=== PATIENT | female | born 1960 | race Caucasian/White ===

== ENCOUNTER → 2023-08-05 14:51 | Outpatient (CLI) | payer OTHER, SELFPAY ==
[2023-08-05 18:47] LABS: Appearance Urine UA CLEAR; Bilirubin Urine UA NEGATIVE (NEGATIVE); Color Urine UA YELLOW; Glucose Urine UA NEGATIVE (Negative); Ketones Urine UA NEGATIVE (NEGATIVE); Leukocyte Esterase Urine UA TRACE (NEGATIVE); Nitrite Urine UA NEGATIVE (Negative); Occult Blood Urine UA NEGATIVE (Negative); Protein Urine UA NEGATIVE (Negative); Urobilinogen Urine UA 0.2 E.U./dL (0.2)
[2023-08-05 19:12] LABS: Bacteria Urine Few (2-10); RBC Urine None Seen (0-5/HPF); Urine Volume 10mL (spun); WBC Urine 10-30/HPF (0-5/HPF)
[2023-08-05 19:13] LABS: Culture Indicated Urine Specimen Cultured; Squamous Epithelial Cell Urine 1-5 /HPF (0-5/HPF)
[2023-08-09 13:46] LABS: Interpretation Negative (Negative)
== END ==
PROVIDERS: PCP Internal Medicine Geriatric Medicine; Referring Provider Internal Medicine Geriatric Medicine; Visit Provider Internal Medicine Geriatric Medicine
DX: R30.0 Dysuria (principal); K29.70 Gastritis, unspecified, without bleeding
CPT/HCPCS: 81001; 83013; 87077; 87086; 87186

== ENCOUNTER → 2024-04-17 12:39 | Outpatient (CLI) | payer OTHER, SELFPAY ==
[2024-04-17 14:02] LABS: Alanine Aminotransferase 27 IU/L (<35)
[2024-04-17 15:46] LABS: Hepatitis B Surface Antigen NEGATIVE s/c (NEGATIVE)
[2024-04-17 16:06] LABS: HIV 1 & 2 Ab/Ag 4th Gen Combo NEGATIVE (NEGATIVE); Hep C Virus Ab w/Reflex Quant NEGATIVE s/c (NEGATIVE)
[2024-04-18 05:40] LABS: Hepatitis B Surf Ab Qualitativ Reactive (.)
== END ==
LOC: LAB 12:43
PROVIDERS: Family Provider Internal Medicine Geriatric Medicine; PCP Internal Medicine Geriatric Medicine; Referring Provider Internal Medicine; Visit Provider Internal Medicine
DX: Z77.21 Contact with and (suspected) exposure to potentially hazardous body fluids (principal)
CPT/HCPCS: 36415; 84460; 86706; 86803; 87340; 87389

== ENCOUNTER → 2024-05-08 08:01 | Outpatient (CLI) | payer OTHER, SELFPAY ==
[2024-05-08 08:39] LABS: Add Manual Diff / Slide Review NO; Basophils Absolute Auto 0 /uL (0-100); Basophils Percent Auto 0.7 % (0-2); Eosinophils Absolute Auto 100 /uL (0-450); Eosinophils Percent Auto 2.9 % (2-4); Hematocrit 40.8 % (36-46); Hemoglobin 13.5 g/dL (12.0-16.0); Lymphocytes Absolute Auto 1200 /uL (1100-4500); Lymphocytes Percent Auto 27.1 % (25-40); Mean Corpuscular HGB Conc 33.1 % (30-36); Mean Corpuscular Hemoglobin 31.5 PG (26-34); Mean Corpuscular Volume 95.2 fL (80-100); Monocytes Absolute Auto 500 /uL (0-900); Monocytes Percent Auto 11.4 % (3-14); Neutrophils Absolute Auto 2500 /uL (1500-7000); Neutrophils Percent Auto 57.9 % (50-75); Platelet Count 165 X10^3/uL (150-400); Red Blood Cell Count 4.29 X10^6/uL (4.0-5.2); Red Cell Distribution Width 13.2 % (11.6-14.8); White Blood Cell Count 4.3 X10^3/uL (4.5-11.0)
[2024-05-08 09:03] LABS: Alanine Aminotransferase 23 IU/L (<35); Albumin 4.1 g/dL (3.5-5.0); Albumin Globulin Ratio 2.1 (1.0-2.8); Alkaline Phosphatase 50 U/L (38-126); Aspartate Aminotransferase 29 IU/L (14-36); BUN Creatinine Ratio 26.7 (6-22); Bilirubin Total 0.5 mg/dL (0.2-1.3); Blood Urea Nitrogen 23 mg/dL (7-17); Calcium 8.9 mg/dL (8.4-10.2); Carbon Dioxide 30 mmol/L (22-32); Chloride 103 mmol/L (98-107); Cholesterol 160 mg/dL (140-199); Estimated Glomerular Filt Rate > 60 mL/min (>60); Glucose 91 mg/dL (80-110); HDL Cholesterol 70 mg/dL (40-60); HEMOLYSIS < 15 (0-50); LDL Cholesterol Calculated 77 mg/dL (<100); Potassium 4.5 mmol/L (3.4-5.1); Sodium 136 mmol/L (137-145); Total Protein 6.1 g/dL (6.3-8.2); Triglycerides 66 mg/dL (35-150)
[2024-05-08 09:16] LABS: T4 Total Thyroxine 7.11 ug/dL (5.5-11.0)
[2024-05-08 09:29] LABS: Thyroid Stimulating Hormone 0.357 uIU/mL (0.47-4.68)
== END ==
PROVIDERS: Family Provider Internal Medicine Geriatric Medicine; PCP Internal Medicine Geriatric Medicine; Referring Provider Internal Medicine Geriatric Medicine; Visit Provider Internal Medicine Geriatric Medicine
DX: Z00.00 Encounter for general adult medical examination without abnormal findings (principal)
CPT/HCPCS: 36415; 80053; 80061; 83036; 84436; 84443; 85025

== ENCOUNTER 2024-05-17 09:00 | Outpatient (RCR) | payer OTHER, SELFPAY ==
--- NOTE | 2024-02-24 16:16 | PT.OIE ---
Current Diagnoses Malignant neoplasm of cervix uteri, unspecified (02/24/24) Pelvic muscle wasting (02/24/24) Nocturia (02/24/24) Urgency of urination (02/24/24) Other specified postprocedural states (02/24/24) Visit Care Team Role Provider Type Kary oJhn MD Family Provider Non-Staff Primary Care Provider Specialty: Medical Address: [address] [place] [address], [phone] Email: Dara Saleem PA-C Attending Provider Non-Staff Referring Provider Specialty: Medical Address: [address] [place], [address] Email: Physical Therapy Initial Evaluation PT-OP-A Visit Information Start: 02/24/24 08:58 Freq: Status: Active Protocol: Document 02/24/24 09:48 [facility] (Rec: 02/24/24 10:42 [facility] [id number]) Out-Patient Physical Therapy Visit Information Visit Information Visit Type Initial Evaluation Visit Start Time 09:45 Visit Stop Time 10:30 Visit Number 1 Evaluation Information Evaluation Date 02/24/24 PT-OP-B Current Condition Start: 02/24/24 08:58 Freq: Status: Active Protocol: Document 02/24/24 09:45 [facility] (Rec: 02/24/24 10:42 [facility] [id number]) Current Condition History of Current Condition Onset Date 10/04/23 Current Complaints pelvic floor weakness and core weakness s/o hysterectomy History of Current Condition Doris is a 63 year old female who presents to PT with goals of strenghtening her pelvic floor s/p laprascopic hysterectomy due to cervical cancer stage 1 A. Doris notes prior to the surgery she didn't really have any urinary symptoms, after the surgery she had double voiding x 1 month, every once in a while she still feels like that happens, she does feel she has a overacive bladder she wakes up 3 times per night to void. She did stop drinking diet coke as this was a trigger for urgency. 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 Treatment Goals Patient/Caregiver Goals Treatment goals include pelvic floor strenghening to prevent urinary leakage and prolapse and decreasing urgency and nocturia PT-OP-C Subjective Start: 02/24/24 08:58 Freq: Status: Active Protocol: Document 02/24/24 09:45 [facility] (Rec: 02/29/24 16:08 [facility] [id number]) Patient Questionnaires Pelvic Pain and Urgency/Frequency Patient Symptom Scale Pelvic Pain Score 9 PT-OP-I Pelvic Floor Start: 02/24/24 08:58 Freq: Status: Active Protocol: Document 02/24/24 09:45 [facility] (Rec: 02/29/24 16:08 [facility] [id number]) Pelvic Floor Assessment Urine Pelvic Floor Surgery Yes: hysterectomy Urinary Symptoms Urge Sensation Other Urinary Symptoms nocturia 3 times per night Voiding Frequency 11-14 times per day Nocturia 3 Pelvic Clock Pelvic Clock 12-3 Atrophy Pelvic Clock 3-6 Atrophy Pelvic Clock 6-9 Atrophy Pelvic Clock 9-12 Atrophy Contraction Ability Voluntary Contraction Weak Voluntary Relaxation Weak Manual Muscle Testing Left 2 Manual Muscle Testing Right 3 Manual Muscle Testing Anterior 2 Manual Muscle Testing Posterior 3 Muscle Endurance (Seconds) 4 Comments Pelvic Floor Comments with the anterior pelvic floor Doris is weaker on the left side as compared to the right side PT-OP-Q Treatments Start: 02/24/24 09:48 Freq: Status: Active Protocol: Document 02/24/24 09:48 [facility] (Rec: 02/24/24 10:42 [facility] [id number]) Therapeutic Exercises Supine Exercises pelvic floor long holds Reps/Minutes x 10 reps holding x 10 seconds and relaxing x 10 seconds Self-Care/Home Management Treatment Education Caregiver Education urge deference technique PT-OP-T Assessment and Plan Start: 02/24/24 08:58 Freq: Status: Active Protocol: Document 02/24/24 09:45 [facility] (Rec: 02/29/24 16:08 [facility] [id number]) Physical Therapy Assessment Rehab Potential Rehabilitation Potential Excellent Evaluation Complexity Number of Personal Factors/Comorbidities 0 Number of Body Systems Impaired 1-2 Clinical Presentation at Evaluation Stable Impairments Impairments Strength,Tone Other Impairments nocturia and overactive bladder symptoms Goals 3 Impairment Decreased endurnace of the pelvic floor Short Term Goal (STG) Doris is able to sustain a pelvic floor contraction in supine x 10 seconds STG Duration 4 weeks Residential Goal (LTG) Doris is able to sustain a pelvic floor contraction in standing x 5 seconds LTG Duration 12 weeks 2 Impairment pelvic floor weakness s/p hysterectomy in September 2023 Short Term Goal (STG) doris is educated on a pelvic floor strengthening program to improve bladder support STG Duration 4 weeks Residential Goal (LTG) Doris is able to improve her strength of the levator ani my one muscle grade or better with MMT for all john of the levator ani. LTG Duration 12 weeks 1 Impairment Doris lacks a home program for pelvic floor and core strengthening s/p hysterectomy Residential Goal (LTG) Doris is independent with a home program for core and pelvic floor strengthening LTG Duration 12 weeks Assessment Summary Assessment Doris is a 63 year old female referred to PT for pelvic floor strengthening s/p hysterectomy in September of 2023. Doris lacks a home program for core and pelvic floor strengthening. She would like to strengthening her pelvic floor and improve endurance of the pelvic floor as well as decrease any symptoms of over active bladder and nocturia. Doris reports voiding 11-14 times per day and 3 times per night. With evaluation MMT is 2/5 for anterior and left lateral john and 3/5 for posterior and right lateral wall of the levator ani. She presents with decreased endurance for pelvic floor contractions and fatigues after a few seconds of sustaining a pelvic floor contraction. Doris is a good candidate for pelvic floor PT and EMG biofeedback will be used to help with pelvic floor strength and endurance training. Physical Therapy Plan Frequency and Duration Frequency of Treatment 1x/Week Duration of treatment (weeks) 12 Plan of Care Start Date 02/24/24 Plan of Care End Date 05/18/24 Therapeutic Interventions Therapeutic Interventions Home Exercise Program,Patient/ Caregiver Education,Self-Care/ Home Management,Therapeutic Exercises Modalities Biofeedback Next Visit Focus/Plan Next Note Type Treatment Note Next Visit Plan Begin EMG biofeedback next visit working on endurance holds of the pelvic floor.
--- NOTE | 2024-02-24 16:16 | PT.OPPOC ---
Physical, Occupational & Speech Therapy At [facility] Current Diagnoses Malignant neoplasm of cervix uteri, unspecified (02/24/24) Pelvic muscle wasting (02/24/24) Nocturia (02/24/24) Urgency of urination (02/24/24) Other specified postprocedural states (02/24/24) Visit Care Team Role Provider Type Kary John MD Family Provider Non-Staff Primary Care Provider Specialty: Medical Address: [address] [place] [address], [phone] Email: Dara Saleem PA-C Attending Provider Non-Staff Referring Provider Specialty: Medical Address: [address] [place], [address] Email: Plan Of Care PT-OP-B Current Condition Start: 02/24/24 08:58 Freq: Status: Active Protocol: Document 02/24/24 09:45 [facility] (Rec: 02/24/24 10:42 [facility] [id number]) Current Condition History of Current Condition Onset Date 10/04/23 Current Complaints pelvic floor weakness and core weakness s/o hysterectomy History of Current Condition Doris is a 63 year old female who presents to PT with goals of strengthening her pelvic floor s/p laprascopic hysterectomy due to cervical cancer stage 1 A. Doris notes prior to the surgery she didn't really have any urinary symptoms, after the surgery she had double voiding x 1 month, every once in a while she still feels like that happens, she does feel she has a overactive bladder she wakes up 3 times per night to void. She did stop drinking diet coke as this was a trigger for urgency. she does get occasional low back pain she does have the menopausal dryness, lichens sclerosis has stopped using her creams due to surgery but will get back to it. Treatment Goals Patient/Caregiver Goals Treatment goals include pelvic floor strengthening to prevent urinary leakage and prolapse and decreasing urgency and nocturia PT-OP-T Assessment and Plan Start: 02/24/24 08:58 Freq: Status: Active Protocol: Document 02/24/24 09:45 [facility] (Rec: 02/29/24 16:08 [facility] [id number]) Physical Therapy Assessment Rehab Potential Rehabilitation Potential Excellent Evaluation Complexity Number of Personal Factors/Comorbidities 0 Number of Body Systems Impaired 1-2 Clinical Presentation at Evaluation Stable Impairments Impairments Strength,Tone Other Impairments nocturia and overactive bladder symptoms Goals 3 Impairment Decreased endurance of the pelvic floor Short Term Goal (STG) Doris is able to sustain a pelvic floor contraction in supine x 10 seconds STG Duration 4 weeks Motor Vehicles Supervisor Goal (LTG) Doris is able to sustain a pelvic floor contraction in standing x 5 seconds LTG Duration 12 weeks 2 Impairment pelvic floor weakness s/p hysterectomy in September 2023 Short Term Goal (STG) Doris is educated on a pelvic floor strengthening program to improve bladder support STG Duration 4 weeks Senior Care Goal (LTG) Doris is able to improve her strength of the levator ani my one muscle grade or better with MMT for all john of the levator ani. LTG Duration 12 weeks 1 Impairment Doris lacks a home program for pelvic floor and core strengthening s/p hysterectomy Senior Care Goal (LTG) Doris is independent with a home program for core and pelvic floor strengthening LTG Duration 12 weeks Assessment Summary Assessment Doris is a 63 year old female referred to PT for pelvic floor strengthening s/p hysterectomy in September of 2023. Doris lacks a home program for core and pelvic floor strengthening. She would like to strengthening her pelvic floor and improve endurance of the pelvic floor as well as decrease any symptoms of over active bladder and nocturia. Doris reports voiding 11-14 times per day and 3 times per night. With evaluation MMT is 2/5 for anterior and left lateral john and 3/5 for posterior and right lateral wall of the levator ani. She presents with decreased endurance for pelvic floor contractions and fatigues after a few seconds of sustaining a pelvic floor contraction. Doris is a good candidate for pelvic floor PT and EMG biofeedback will be used to help with pelvic floor strength and endurance training. Physical Therapy Plan Frequency and Duration Frequency of Treatment 1x/Week Duration of treatment (weeks) 12 Plan of Care Start Date 02/24/24 Plan of Care End Date 05/18/24 Therapeutic Interventions Therapeutic Interventions Home Exercise Program,Patient/ Caregiver Education,Self-Care/ Home Management,Therapeutic Exercises Modalities Biofeedback Next Visit Focus/Plan Next Note Type Treatment Note Next Visit Plan Begin EMG biofeedback next visit working on endurance holds of the pelvic floor. Plan of Care Dates Plan of Care Start Date 02/24/24 Plan of Care End Date 05/18/24 Electronically Signed by: Stacie Hinds, PT 02/29/24 [id number] If you are in agreement with this Plan of Care, please return a signed and dated copy. I have reviewed this Plan of Care and certify that the skilled therapy services above are required to meet the patient?s needs. Physician Signature Date Printed Name and Credentials Clinical Instructor Signature Printed Name and Credentials
--- NOTE | 2024-03-01 12:42 | PT.OTN ---
Current Diagnoses Malignant neoplasm of cervix uteri, unspecified (03/01/24) Pelvic muscle wasting (03/01/24) Nocturia (03/01/24) Urgency of urination (03/01/24) Other specified postprocedural states (03/01/24) Physical Therapy Treatment Note PT-OP-A Visit Information Start: 02/24/24 08:58 Freq: Status: Active Protocol: Document 03/01/24 09:54 [facility] (Rec: 03/01/24 10:47 [facility] [id number]) Out-Patient Physical Therapy Visit Information Visit Information Visit Type Treatment Note Visit Start Time 09:55 Visit Stop Time 10:35 Visit Number 2 PT-OP-B Current Condition Start: 02/24/24 08:58 Freq: Status: Active Protocol: Document 02/24/24 09:45 [facility] (Rec: 02/24/24 10:42 [facility] [id number]) Current Condition History of Current Condition Onset Date 10/04/23 Current Complaints pelvic floor weakness and core weakness s/o hysterectomy History of Current Condition Doris is a 63 year old female who presents to PT with goals of strenghtening her pelvic floor s/p laprascopic hysterectomy due to cervical cancer stage 1 A. Doris notes prior to the surgery she didn't really have any urinary symptoms, after the surgery she had double voiding x 1 month, every once in a while she still feels like that happens, she does feel she has a overacive bladder she wakes up 3 times per night to void. She did stop drinking diet coke as this was a trigger for urgency. 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 Treatment Goals Patient/Caregiver Goals Treatment goals include pelvic floor strenghening to prevent urinary leakage and prolapse and decreasing urgency and nocturia PT-OP-C Subjective Start: 02/24/24 08:58 Freq: Status: Active Protocol: Document 03/01/24 09:54 [facility] (Rec: 03/01/24 10:47 [facility] [id number]) OP-PT Subjective Patient Comments Patient Comments pt notes she feels like she gets to 5 seconds and then feels like her pelvic floor relaxes. She is waking eery 2 hours to void. PT-OP-I Pelvic Floor Start: 02/24/24 08:58 Freq: Status: Active Protocol: Document 02/24/24 09:45 [facility] (Rec: 02/29/24 16:08 [facility] [id number]) Pelvic Floor Assessment Urine Pelvic Floor Surgery Yes: hysterectomy Urinary Symptoms Urge Sensation Other Urinary Symptoms nocturia 3 times per night Voiding Frequency 11-14 times per day Nocturia 3 Pelvic Clock Pelvic Clock 12-3 Atrophy Pelvic Clock 3-6 Atrophy Pelvic Clock 6-9 Atrophy Pelvic Clock 9-12 Atrophy Contraction Ability Voluntary Contraction Weak Voluntary Relaxation Weak Manual Muscle Testing Left 2 Manual Muscle Testing Right 3 Manual Muscle Testing Anterior 2 Manual Muscle Testing Posterior 3 Muscle Endurance (Seconds) 4 Comments Pelvic Floor Comments with the anterior pelvic floor Doris is weaker on the left side as compared to the right side PT-OP-Q Treatments Start: 02/24/24 09:48 Freq: Status: Active Protocol: Document 03/01/24 09:54 [facility] (Rec: 03/01/24 10:47 [facility] [id number]) Therapeutic Exercises Supine Exercises baseline on EMG biofeedback Supine Exercise Name 5.0 uv at rest ball squeeze with pelvic floor contraction Reps/Minutes x 10 reps pelvic floor long holds Reps/Minutes x 10 reps holding x 10 seconds and relaxing x 10 seconds Comments average 16.1 and max 27.2 PT-OP-T Assessment and Plan Start: 02/24/24 08:58 Freq: Status: Active Protocol: Document 03/01/24 09:54 [facility] (Rec: 03/01/24 10:47 [facility] [id number]) Physical Therapy Assessment Assessment Summary Assessment EMG biofeedback was initiated today for pelvic floor long holds and Doris tolerated this well. She was elevated at rest at 5.0 uv so I added in pelvic floor stretch and piriformis stretch to HEP along with supine resisted clam shells Physical Therapy Plan Frequency and Duration Frequency of Treatment 1x/Week Duration of treatment (weeks) 12 Plan of Care Start Date 02/24/24 Plan of Care End Date 05/18/24 Therapeutic Interventions Therapeutic Interventions Home Exercise Program,Patient/ Caregiver Education,Self-Care/ Home Management,Therapeutic Exercises Modalities Biofeedback Next Visit Focus/Plan Next Note Type Treatment Note Next Visit Plan review new exercises given today and check in with how pt is doing with nocturia, continue EMG biofeedback
--- NOTE | 2024-04-27 17:29 | PT.OTN ---
Current Diagnoses Malignant neoplasm of cervix uteri, unspecified (04/27/24) Pelvic muscle wasting (04/27/24) Nocturia (04/27/24) Urgency of urination (04/27/24) Other specified postprocedural states (04/27/24) Physical Therapy Treatment Note PT-OP-A Visit Information Start: 02/24/24 08:58 Freq: Status: Active Protocol: Document 04/27/24 11:17 [facility] (Rec: 04/27/24 12:22 [facility] [id number]) Out-Patient Physical Therapy Visit Information Visit Information Visit Type Progress Note Visit Start Time 11:30 Visit Stop Time 12:15 Visit Number 3 PT-OP-B Current Condition Start: 02/24/24 08:58 Freq: Status: Active Protocol: Document 02/24/24 09:45 [facility] (Rec: 02/24/24 10:42 [facility] [id number]) Current Condition History of Current Condition Onset Date 10/04/23 Current Complaints pelvic floor weakness and core weakness s/o hysterectomy History of Current Condition Doris is a 63 year old female who presents to PT with goals of strenghtening her pelvic floor s/p laprascopic hysterectomy due to cervical cancer stage 1 A. Doris notes prior to the surgery she didn't really have any urinary symptoms, after the surgery she had double voiding x 1 month, every once in a while she still feels like that happens, she does feel she has a overacive bladder she wakes up 3 times per night to void. She did stop drinking diet coke as this was a trigger for urgency. 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 Treatment Goals Patient/Caregiver Goals Treatment goals include pelvic floor strenghening to prevent urinary leakage and prolapse and decreasing urgency and nocturia PT-OP-C Subjective Start: 02/24/24 08:58 Freq: Status: Active Protocol: Document 04/27/24 11:17 [facility] (Rec: 04/27/24 12:22 [facility] [id number]) OP-PT Subjective Patient Comments Patient Comments pt has been taking care of her brother who is undergoing cancer treatments so has not had a great amount of time to work on her exercises, she does feel like her bladder is calmed down and urgency is decreased Patient Reported Progress Improving PT-OP-I Pelvic Floor Start: 02/24/24 08:58 Freq: Status: Active Protocol: Document 02/24/24 09:45 [facility] (Rec: 02/29/24 16:08 [facility] [id number]) Pelvic Floor Assessment Urine Pelvic Floor Surgery Yes: hysterectomy Urinary Symptoms Urge Sensation Other Urinary Symptoms nocturia 3 times per night Voiding Frequency 11-14 times per day Nocturia 3 Pelvic Clock Pelvic Clock 12-3 Atrophy Pelvic Clock 3-6 Atrophy Pelvic Clock 6-9 Atrophy Pelvic Clock 9-12 Atrophy Contraction Ability Voluntary Contraction Weak Voluntary Relaxation Weak Manual Muscle Testing Left 2 Manual Muscle Testing Right 3 Manual Muscle Testing Anterior 2 Manual Muscle Testing Posterior 3 Muscle Endurance (Seconds) 4 Comments Pelvic Floor Comments with the anterior pelvic floor Doris is weaker on the left side as compared to the right side PT-OP-Q Treatments Start: 02/24/24 09:48 Freq: Status: Active Protocol: Document 04/27/24 11:17 [facility] (Rec: 04/27/24 12:22 [facility] [id number]) Therapeutic Exercises Supine Exercises modified squat stretch Reps/Minutes hold 1-2 min hip roll outs with theraband Reps/Minutes x 20 reps piriformis stretch Reps/Minutes 1 min each side ball squeeze with pelvic floor contraction Supine Exercise Name ball squeeze not needed as pt is isolating on her own. Reps/Minutes x 10 reps Comments 16.1 24 max pelvic floor long holds Supine Exercise Name 3.0 at rest Comments 14,3 and 23,7 max Sidelying Exercises clam shells Sidelying Exercise Name tighter on the adductors on the left but it feels harder to lift the right Reps/Minutes 2 x 10 reps Standing Exercises standing adductor stretch Standing Exercise Name hands on the counter Reps/Minutes 20 sec x 3-5 reps PT-OP-T Assessment and Plan Start: 02/24/24 08:58 Freq: Status: Active Protocol: Document 04/27/24 11:17 [facility] (Rec: 04/27/24 12:22 [facility] [id number]) Physical Therapy Assessment Goals 3 Impairment Decreased endurnace of the pelvic floor Short Term Goal (STG) Doris is able to sustain a pelvic floor contraction in supine x 10 seconds As of 04/27/24 this is improving STG Duration 4 weeks Chucking And Sawing Machine Operator Goal (LTG) Doris is able to sustain a pelvic floor contraction in standing x 5 seconds LTG Duration 12 weeks 2 Impairment pelvic floor weakness s/p hysterectomy in September 2023 Short Term Goal (STG) doris is educated on a pelvic floor strengthening program to improve bladder support STG Duration 4 weeks [facility] Goal (LTG) Doris is able to improve her strength of the levator ani my one muscle grade or better with MMT for all john of the levator ani. LTG Duration 12 weeks 1 Impairment Doris lacks a home program for pelvic floor and core strengthening s/p hysterectomy Chucking And Sawing Machine Operator Goal (LTG) Doris is independent with a home program for core and pelvic floor strengthening LTG Duration 12 weeks Assessment Summary Assessment Doris returns to PT today after not being seen since Mar 01 as she has been out of the [place] taking care of her brother with cancer. I am updating her plan of care dates to be jerri to continue PT as she would benefit from contined visits. With her visit today i Added in sidelying clam shells today and Doris is tightner in her left adductors. I added on a modifed squat stretch and standing adductor stretch. Resting tone went down following hip stretches. Continue to work on relaxed awareness of the pelvic floor and endurance holds Physical Therapy Plan Frequency and Duration Frequency of Treatment 1x/Week Duration of treatment (weeks) 8 Plan of Care Start Date 04/27/24 Plan of Care End Date 06/22/24 Therapeutic Interventions Therapeutic Interventions Home Exercise Program,Patient/ Caregiver Education,Self-Care/ Home Management,Therapeutic Exercises Modalities Biofeedback Next Visit Focus/Plan Next Note Type Treatment Note Next Visit Plan start with stretches first next visit as it does help with her resting tone of the pelvic floor, continue with strengthening and endurance exercises
--- NOTE | 2024-04-27 17:29 | PT.OPPOC ---
Physical, Occupational & Speech Therapy At [facility] Current Diagnoses Malignant neoplasm of cervix uteri, unspecified (04/27/24) Pelvic muscle wasting (04/27/24) Nocturia (04/27/24) Urgency of urination (04/27/24) Other specified postprocedural states (04/27/24) Visit Care Team Role Provider Type Kary John MD Family Provider Non-Staff Primary Care Provider Specialty: Medical Address: [address] [place] [address], [phone] Email: Dara Saleem PA-C Attending Provider Non-Staff Referring Provider Specialty: Medical Address: [address] [place], [address] Email: Plan Of Care PT-OP-B Current Condition Start: 02/24/24 08:58 Freq: Status: Active Protocol: Document 02/24/24 09:45 [facility] (Rec: 02/24/24 10:42 [facility] [id number]) Current Condition History of Current Condition Onset Date 10/04/23 Current Complaints pelvic floor weakness and core weakness s/o hysterectomy History of Current Condition Don is a 63 year old female who presents to PT with goals of strengthening her pelvic floor s/p laprascopic hysterectomy due to cervical cancer stage 1 A. Don notes prior to the surgery she didn't really have any urinary symptoms, after the surgery she had double voiding x 1 month, every once in a while she still feels like that happens, she does feel she has a overacive bladder she wakes up 3 times per night to void. She did stop drinking diet coke as this was a trigger for urgency. she does get occasional low back pain she does have the menopausal dryness, lichens sclerosis has stopped using her creams due to surgery but will get back to it. Treatment Goals Patient/Caregiver Goals Treatment goals include pelvic floor strengthening to prevent urinary leakage and prolapse and decreasing urgency and nocturia PT-OP-T Assessment and Plan Start: 02/24/24 08:58 Freq: Status: Active Protocol: Document 04/27/24 11:17 [facility] (Rec: 04/27/24 12:22 [facility] [id number]) Physical Therapy Assessment Goals 3 Impairment Decreased endurance of the pelvic floor Short Term Goal (STG) Don is able to sustain a pelvic floor contraction in supine x 10 seconds As of 04/27/24 this is improving STG Duration 4 weeks [employer] Custom Goal (LTG) Don is able to sustain a pelvic floor contraction in standing x 5 seconds LTG Duration 12 weeks 2 Impairment pelvic floor weakness s/p hysterectomy in September 2023 Short Term Goal (STG) don is educated on a pelvic floor strengthening program to improve bladder support STG Duration 4 weeks [employer] Custom Goal (LTG) Don is able to improve her strength of the levator ani my one muscle grade or better with MMT for all john of the levator ani. LTG Duration 12 weeks 1 Impairment Don lacks a home program for pelvic floor and core strengthening s/p hysterectomy Penitentiary Goal (LTG) Don is independent with a home program for core and pelvic floor strengthening LTG Duration 12 weeks Assessment Summary Assessment Don returns to PT today after not being seen since Mar 01 as she has been out of the state taking care of her brother with cancer. I am updating her plan of care dates to be able to continue PT as she would benefit from continued visits. With her visit today i Added in sidelying clam shells today and Don is tighter in her left adductors. I added on a modified squat stretch and standing adductor stretch. Resting tone went down following hip stretches. Continue to work on relaxed awareness of the pelvic floor and endurance holds Physical Therapy Plan Frequency and Duration Frequency of Treatment 1x/Week Duration of treatment (weeks) 8 Plan of Care Start Date 04/27/24 Plan of Care End Date 06/22/24 Therapeutic Interventions Therapeutic Interventions Home Exercise Program,Patient/ Caregiver Education,Self-Care/ Home Management,Therapeutic Exercises Modalities Biofeedback Next Visit Focus/Plan Next Note Type Treatment Note Next Visit Plan start with stretches first next visit as it does help with her resting tone of the pelvic floor, continue with strengthening and endurance exercises Plan of Care Dates Plan of Care Start Date 04/27/24 Plan of Care End Date 06/22/24 Electronically Signed by: Stacie Hinds, PT 04/27/24 8918 If you are in agreement with this Plan of Care, please return a signed and dated copy. I have reviewed this Plan of Care and certify that the skilled therapy services above are required to meet the patient?s needs. Physician Signature Date Printed Name and Credentials Clinical Instructor Signature Printed Name and Credentials
--- NOTE | 2024-05-03 13:25 | PT.OTN ---
Current Diagnoses Malignant neoplasm of cervix uteri, unspecified (05/03/24) Pelvic muscle wasting (05/03/24) Nocturia (05/03/24) Urgency of urination (05/03/24) Other specified postprocedural states (05/03/24) Physical Therapy Treatment Note PT-OP-A Visit Information Start: 02/24/24 08:58 Freq: Status: Active Protocol: Document 05/03/24 09:00 [facility] (Rec: 05/03/24 13:23 [facility] [id number]) Out-Patient Physical Therapy Visit Information Visit Information Visit Type Treatment Note Visit Start Time 09:00 Visit Stop Time 09:45 Visit Number 4 PT-OP-B Current Condition Start: 02/24/24 08:58 Freq: Status: Active Protocol: Document 02/24/24 09:45 [facility] (Rec: 02/24/24 10:42 [facility] [id number]) Current Condition History of Current Condition Onset Date 10/04/23 Current Complaints pelvic floor weakness and core weakness s/o hysterectomy History of Current Condition Doris is a 63 year old female who presents to PT with goals of strenghtening her pelvic floor s/p laprascopic hysterectomy due to cervical cancer stage 1 A. Doris notes prior to the surgery she didn't really have any urinary symptoms, after the surgery she had double voiding x 1 month, every once in a while she still feels like that happens, she does feel she has a overacive bladder she wakes up 3 times per night to void. She did stop drinking diet coke as this was a trigger for urgency. 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 Treatment Goals Patient/Caregiver Goals Treatment goals include pelvic floor strenghening to prevent urinary leakage and prolapse and decreasing urgency and nocturia PT-OP-C Subjective Start: 02/24/24 08:58 Freq: Status: Active Protocol: Document 05/03/24 08:59 [facility] (Rec: 05/03/24 09:45 [facility] [id number]) OP-PT Subjective Patient Comments Patient Comments She feels the connection better and it is getting less mental effort to PT-OP-I Pelvic Floor Start: 02/24/24 08:58 Freq: Status: Active Protocol: Document 02/24/24 09:45 [facility] (Rec: 02/29/24 16:08 [facility] [id number]) Pelvic Floor Assessment Urine Pelvic Floor Surgery Yes: hysterectomy Urinary Symptoms Urge Sensation Other Urinary Symptoms nocturia 3 times per night Voiding Frequency 11-14 times per day Nocturia 3 Pelvic Clock Pelvic Clock 12-3 Atrophy Pelvic Clock 3-6 Atrophy Pelvic Clock 6-9 Atrophy Pelvic Clock 9-12 Atrophy Contraction Ability Voluntary Contraction Weak Voluntary Relaxation Weak Manual Muscle Testing Left 2 Manual Muscle Testing Right 3 Manual Muscle Testing Anterior 2 Manual Muscle Testing Posterior 3 Muscle Endurance (Seconds) 4 Comments Pelvic Floor Comments with the anterior pelvic floor Doris is weaker on the left side as compared to the right side PT-OP-Q Treatments Start: 02/24/24 09:48 Freq: Status: Active Protocol: Document 05/03/24 08:59 [facility] (Rec: 05/03/24 09:45 [facility] [id number]) Therapeutic Exercises Supine Exercises templates for eccentric control and coordination Reps/Minutes x 8 min modified squat stretch Reps/Minutes hold 1-2 min piriformis stretch Reps/Minutes 1 min each side baseline on EMG biofeedback Supine Exercise Name 2.0 uv at rest pelvic floor long holds Supine Exercise Name 2.0 at rest Comments 13.6 and max of 21.7 Other Exercises hands and knees adducotro stretch Reps/Minutes x 5 each side PT-OP-T Assessment and Plan Start: 02/24/24 08:58 Freq: Status: Active Protocol: Document 05/03/24 08:59 [facility] (Rec: 05/03/24 09:45 [facility] [id number]) Physical Therapy Assessment Assessment Summary Assessment Doris is making good progress with PT, her endurance is improving and resting tone of the pelvic floor is decreasing on EMG biofeedback. She is doing well with her stretches and I gave her a dynamic adductor release from a quadruped position today that she did well with Physical Therapy Plan Frequency and Duration Frequency of Treatment 1x/Week Duration of treatment (weeks) 8 Plan of Care Start Date 04/27/24 Plan of Care End Date 06/22/24 Therapeutic Interventions Therapeutic Interventions Home Exercise Program,Patient/ Caregiver Education,Self-Care/ Home Management,Therapeutic Exercises Modalities Biofeedback Next Visit Focus/Plan Next Note Type Treatment Note Next Visit Plan review adductor release and how Doris did with eccentric control, go through clam shells next visit and continue with pelvic floor endurance training
--- NOTE | 2024-05-10 12:48 | PT.OTN ---
Current Diagnoses Malignant neoplasm of cervix uteri, unspecified (05/10/24) Pelvic muscle wasting (05/10/24) Nocturia (05/10/24) Urgency of urination (05/10/24) Other specified postprocedural states (05/10/24) Physical Therapy Treatment Note PT-OP-A Visit Information Start: 02/24/24 08:58 Freq: Status: Active Protocol: Document 05/10/24 08:58 [facility] (Rec: 05/10/24 09:11 [facility] [id number]) Out-Patient Physical Therapy Visit Information Visit Information Visit Type Treatment Note Visit Start Time 09:00 Visit Stop Time 09:45 Visit Number 5 PT-OP-B Current Condition Start: 02/24/24 08:58 Freq: Status: Active Protocol: Document 02/24/24 09:45 [facility] (Rec: 02/24/24 10:42 [facility] [id number]) Current Condition History of Current Condition Onset Date 10/04/23 Current Complaints pelvic floor weakness and core weakness s/o hysterectomy History of Current Condition Doris is a 63 year old female who presents to PT with goals of strenghtening her pelvic floor s/p laprascopic hysterectomy due to cervical cancer stage 1 A. Doris notes prior to the surgery she didn't really have any urinary symptoms, after the surgery she had double voiding x 1 month, every once in a while she still feels like that happens, she does feel she has a overacive bladder she wakes up 3 times per night to void. She did stop drinking diet coke as this was a trigger for urgency. 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 Treatment Goals Patient/Caregiver Goals Treatment goals include pelvic floor strenghening to prevent urinary leakage and prolapse and decreasing urgency and nocturia PT-OP-C Subjective Start: 02/24/24 08:58 Freq: Status: Active Protocol: Document 05/10/24 08:58 [facility] (Rec: 05/10/24 09:11 [facility] [id number]) OP-PT Subjective Patient Comments Patient Comments Doris reports she is stillhaving a hard time feeling the pelvic floor contractions PT-OP-I Pelvic Floor Start: 02/24/24 08:58 Freq: Status: Active Protocol: Document 02/24/24 09:45 [facility] (Rec: 02/29/24 16:08 [facility] [id number]) Pelvic Floor Assessment Urine Pelvic Floor Surgery Yes: hysterectomy Urinary Symptoms Urge Sensation Other Urinary Symptoms nocturia 3 times per night Voiding Frequency 11-14 times per day Nocturia 3 Pelvic Clock Pelvic Clock 12-3 Atrophy Pelvic Clock 3-6 Atrophy Pelvic Clock 6-9 Atrophy Pelvic Clock 9-12 Atrophy Contraction Ability Voluntary Contraction Weak Voluntary Relaxation Weak Manual Muscle Testing Left 2 Manual Muscle Testing Right 3 Manual Muscle Testing Anterior 2 Manual Muscle Testing Posterior 3 Muscle Endurance (Seconds) 4 Comments Pelvic Floor Comments with the anterior pelvic floor Doris is weaker on the left side as compared to the right side PT-OP-Q Treatments Start: 02/24/24 09:48 Freq: Status: Active Protocol: Document 05/10/24 08:58 [facility] (Rec: 05/10/24 09:11 [facility] [id number]) Therapeutic Exercises Supine Exercises hamstring dynamic flossing Reps/Minutes x 10 each side single knee to chest Reps/Minutes hold 1-2 min baseline on EMG biofeedback Supine Exercise Name 2.0 uv at rest pelvic floor long holds Reps/Minutes x 10 reps holding x 10 seconds and relaxing x 10 seconds Comments 16.8 and max 27.4 Neuro Re-Education Treatment Other Activities NMES Details NMES for the pelvic floor Comments felt it at level 6 went to 10 inititially and she feels it stronger on the she went to 14 and could feel it primarily on the left side PT-OP-T Assessment and Plan Start: 02/24/24 08:58 Freq: Status: Active Protocol: Document 05/10/24 08:58 [facility] (Rec: 05/10/24 09:16 [facility] [id number]) Physical Therapy Assessment Goals 3 Impairment Decreased endurnace of the pelvic floor Short Term Goal (STG) Doris is able to sustain a pelvic floor contraction in supine x 10 seconds As of 04/27/24 this is improving STG Duration 4 weeks Long-Term Goal (LTG) Doris is able to sustain a pelvic floor contraction in standing x 5 seconds LTG Duration 12 weeks 2 Impairment pelvic floor weakness s/p hysterectomy in September 2023 Short Term Goal (STG) doris is educated on a pelvic floor strengthening program to improve bladder support STG Duration 4 weeks Long-Term Goal (LTG) Doris is able to improve her strength of the levator ani my one muscle grade or better with MMT for all john of the levator ani. LTG Duration 12 weeks 1 Impairment Doris lacks a home program for pelvic floor and core strengthening s/p hysterectomy Long-Term Goal (LTG) Doris is independent with a home program for core and pelvic floor strengthening LTG Duration 12 weeks Assessment Summary Assessment I added in a trial of NMES for the pelvic floor today for Doris as she was still feeling that it was hard to find and sustain the pelvic floor contractions. She did well with the stim and felt it primarily on the left side. She did feel like it was helpful for her and would like to try it again next visit. I also added in a hamstring stretch and single knee to chest stretch. Physical Therapy Plan Frequency and Duration Frequency of Treatment 1x/Week Duration of treatment (weeks) 8 Plan of Care Start Date 04/27/24 Plan of Care End Date 06/22/24 Next Visit Focus/Plan Next Note Type Treatment Note Next Visit Plan start with stretches next visit then NMES and pelvic floor endurance training
--- NOTE | 2024-05-17 09:59 | PT.OTN ---
Current Diagnoses Malignant neoplasm of cervix uteri, unspecified (05/17/24) Pelvic muscle wasting (05/17/24) Nocturia (05/17/24) Urgency of urination (05/17/24) Other specified postprocedural states (05/17/24) Physical Therapy Treatment Note PT-OP-A Visit Information Start: 02/24/24 08:58 Freq: Status: Active Protocol: Document 05/17/24 09:02 [facility] (Rec: 05/17/24 09:48 [facility] [id number]) Out-Patient Physical Therapy Visit Information Visit Information Visit Type Treatment Note Visit Note Makeda present for visit Visit Start Time 09:05 PT-OP-B Current Condition Start: 02/24/24 08:58 Freq: Status: Active Protocol: Document 02/24/24 09:45 [facility] (Rec: 02/24/24 10:42 [facility] [id number]) Current Condition History of Current Condition Onset Date 10/04/23 Current Complaints pelvic floor weakness and core weakness s/o hysterectomy History of Current Condition Doris is a 63 year old female who presents to PT with goals of strenghtening her pelvic floor s/p laprascopic hysterectomy due to cervical cancer stage 1 A. Doris notes prior to the surgery she didn't really have any urinary symptoms, after the surgery she had double voiding x 1 month, every once in a while she still feels like that happens, she does feel she has a overacive bladder she wakes up 3 times per night to void. She did stop drinking diet coke as this was a trigger for urgency. 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 Treatment Goals Patient/Caregiver Goals Treatment goals include pelvic floor strenghening to prevent urinary leakage and prolapse and decreasing urgency and nocturia PT-OP-C Subjective Start: 02/24/24 08:58 Freq: Status: Active Protocol: Document 05/17/24 09:02 [facility] (Rec: 05/17/24 09:48 [facility] [id number]) OP-PT Subjective Patient Comments Patient Comments pt notes after her last visit she went for a long 3 mile walk she began feeling her left hip after doing clam shells last visit SHe notes she does feel that is feeling the connection better PT-OP-I Pelvic Floor Start: 02/24/24 08:58 Freq: Status: Active Protocol: Document 02/24/24 09:45 [facility] (Rec: 02/29/24 16:08 [facility] [id number]) Pelvic Floor Assessment Urine Pelvic Floor Surgery Yes: hysterectomy Urinary Symptoms Urge Sensation Other Urinary Symptoms nocturia 3 times per night Voiding Frequency 11-14 times per day Nocturia 3 Pelvic Clock Pelvic Clock 12-3 Atrophy Pelvic Clock 3-6 Atrophy Pelvic Clock 6-9 Atrophy Pelvic Clock 9-12 Atrophy Contraction Ability Voluntary Contraction Weak Voluntary Relaxation Weak Manual Muscle Testing Left 2 Manual Muscle Testing Right 3 Manual Muscle Testing Anterior 2 Manual Muscle Testing Posterior 3 Muscle Endurance (Seconds) 4 Comments Pelvic Floor Comments with the anterior pelvic floor Doris is weaker on the left side as compared to the right side PT-OP-Q Treatments Start: 02/24/24 09:48 Freq: Status: Active Protocol: Document 05/17/24 09:02 [facility] (Rec: 05/17/24 09:48 [facility] [id number]) Therapeutic Exercises Supine Exercises hamstring dynamic flossing Reps/Minutes x 10 each side Comments floss/c AP then hold single knee to chest Side bilateral Reps/Minutes hold 1-2 min modified squat stretch Supine Exercise Name Happy Baby Reps/Minutes hold 1-2 min piriformis stretch Side bilateral Resistance ankle over opp knee (can lift B legs/c towel) Reps/Minutes 1 min each side baseline on EMG biofeedback Supine Exercise Name 1.9 uv at rest pelvic floor long holds Reps/Minutes x 10 reps holding x 10 seconds and relaxing x 10 seconds Comments 16.5 and max 24.1 Standing Exercises standing adductor stretch Standing Exercise Name hands on the counter Reps/Minutes 20 sec x 3-5 reps Comments verbal review: butterfly vs frog quad vs stand side lunge Neuro Re-Education Treatment Other Activities NMES Details NMES for the pelvic floor Comments pt could feel the NMES at 9 and went to 24 She still feels the sensation between 9 and 1 on the front left side and once the NMES went from 21-24 she could feel more engaging on the posterior portion. She then went to 33 and could start to feel the right side more and she could feel around the 3 o clock on the right Self-Care/Home Management Treatment Education Patient Education Home Exercise Program Other Education home exercise program written out on a flow sheet discussed the order of exercises for home starting with stretches PT-OP-T Assessment and Plan Start: 02/24/24 08:58 Freq: Status: Active Protocol: Document 05/17/24 09:02 [facility] (Rec: 05/17/24 09:48 [facility] [id number]) Physical Therapy Assessment Goals 3 Impairment Decreased endurnace of the pelvic floor Short Term Goal (STG) Doris is able to sustain a pelvic floor contraction in supine x 10 seconds As of 04/27/24 this is improving STG Duration 4 weeks [facility] Goal (LTG) Doris is able to sustain a pelvic floor contraction in standing x 5 seconds LTG Duration 12 weeks 2 Impairment pelvic floor weakness s/p hysterectomy in September 2023 Short Term Goal (STG) doris is educated on a pelvic floor strengthening program to improve bladder support STG Duration 4 weeks [facility] Goal (LTG) Doris is able to improve her strength of the levator ani my one muscle grade or better with MMT for all john of the levator ani. LTG Duration 12 weeks 1 Impairment Doris lacks a home program for pelvic floor and core strengthening s/p hysterectomy [facility] Director Goal (LTG) Doris is independent with a home program for core and pelvic floor strengthening LTG Duration 12 weeks Assessment Summary Assessment Pt reports can feel more in pelvic floor 12 to 3 and 6 on R. Recommending clamshell 3-4/ wk Good tolerance to NMES and pt demonstrated improved resting tone on EMG biofeedback, Overall improving sensation of the pelvic floor Physical Therapy Plan Frequency and Duration Frequency of Treatment 1x/Week Duration of treatment (weeks) 8 Plan of Care Start Date 04/27/24 Plan of Care End Date 06/22/24 Therapeutic Interventions Therapeutic Interventions Home Exercise Program,Patient/ Caregiver Education,Self-Care/ Home Management,Therapeutic Exercises Modalities Biofeedback Next Visit Focus/Plan Next Note Type Treatment Note Next Visit Plan start with stretches the neuromuscular fac then NMES and pelvic floor endurance training
--- NOTE | 2024-05-25 11:57 | PT.OPPOC ---
Physical, Occupational & Speech Therapy At [facility] Current Diagnoses Malignant neoplasm of cervix uteri, unspecified (05/17/24) Pelvic muscle wasting (05/17/24) Nocturia (05/17/24) Urgency of urination (05/17/24) Other specified postprocedural states (05/17/24) Visit Care Team Role Provider Type Kary John MD Family Provider Non-Staff Primary Care Provider Specialty: Medical Address: [address] [place] [address], [phone] Email: Dara Saleem PA-C Attending Provider Non-Staff Referring Provider Specialty: Medical Address: [address] [place], [address] Email: Plan Of Care PT-OP-B Current Condition Start: 02/24/24 08:58 Freq: Status: Active Protocol: Document 02/24/24 09:45 [facility] (Rec: 02/24/24 10:42 [facility] [id number]) Current Condition History of Current Condition Onset Date 10/04/23 Current Complaints pelvic floor weakness and core weakness s/o hysterectomy History of Current Condition Don is a 63 year old female who presents to PT with goals of strenghtening her pelvic floor s/p laprascopic hysterectomy due to cervical cancer stage 1 A. Don notes prior to the surgery she didn't really have any urinary symptoms, after the surgery she had double voiding x 1 month, every once in a while she still feels like that happens, she does feel she has a overacive bladder she wakes up 3 times per night to void. She did stop drinking diet coke as this was a trigger for urgency. 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 Treatment Goals Patient/Caregiver Goals Treatment goals include pelvic floor strenghening to prevent urinary leakage and prolapse and decreasing urgency and nocturia PT-OP-T Assessment and Plan Start: 02/24/24 08:58 Freq: Status: Active Protocol: Document 05/25/24 11:54 [facility] (Rec: 05/25/24 11:55 [facility] [id number]) Physical Therapy Assessment Goals 3 Impairment Decreased endurnace of the pelvic floor Short Term Goal (STG) Don is able to sustain a pelvic floor contraction in supine x 10 seconds As of 04/27/24 this is improving STG Duration 4 weeks Deck [employer]older Goal (LTG) Don is able to sustain a pelvic floor contraction in standing x 5 seconds LTG Duration 12 weeks 2 Impairment pelvic floor weakness s/p hysterectomy in September 2023 Short Term Goal (STG) don is educated on a pelvic floor strengthening program to improve bladder support STG Duration 4 weeks Deck Molder Goal (LTG) Don is able to improve her strength of the levator ani my one muscle grade or better with MMT for all john of the levator ani. LTG Duration 12 weeks 1 Impairment Don lacks a home program for pelvic floor and core strengthening s/p hysterectomy Prison Goal (LTG) Don is independent with a home program for core and pelvic floor strengthening LTG Duration 12 weeks Assessment Summary Assessment Don called in to let us know she needs to go help her brother who is undergoing cancer treatment. She will be back in june. I will extend her plan of care for her so we can resume PT once she is back Physical Therapy Plan Frequency and Duration Frequency of Treatment 1x/Week Duration of treatment (weeks) 8 Plan of Care Start Date 05/25/24 Plan of Care End Date 07/20/24 Plan of Care Dates Plan of Care Start Date 05/25/24 Plan of Care End Date 07/20/24 Electronically Signed by: Stacie Hinds, PT 05/25/24 [id number] If you are in agreement with this Plan of Care, please return a signed and dated copy. I have reviewed this Plan of Care and certify that the skilled therapy services above are required to meet the patient?s needs. Physician Signature Date Printed Name and Credentials Clinical Instructor Signature Printed Name and Credentials
--- NOTE | 2024-08-08 11:19 | PT.OPDS ---
Current Diagnoses Malignant neoplasm of cervix uteri, unspecified (05/17/24) Pelvic muscle wasting (05/17/24) Nocturia (05/17/24) Urgency of urination (05/17/24) Other specified postprocedural states (05/17/24) Visit Care Team Role Provider Type Kary John MD Family Provider Non-Staff Primary Care Provider Specialty: Medical Address: [address] [place] [address], [phone] Email: Dara Saleem PA-C Attending Provider Non-Staff Referring Provider Specialty: Medical Address: [address] [place], [address] Email: Visit Number Visit Number 5 Discharge Summary PT-OP-B Current Condition Start: 02/24/24 08:58 Freq: Status: Active Protocol: Document 02/24/24 09:45 [facility] (Rec: 02/24/24 10:42 [facility] [id number]) Current Condition History of Current Condition Onset Date 10/04/23 Current Complaints pelvic floor weakness and core weakness s/o hysterectomy History of Current Condition Doris is a 63 year old female who presents to PT with goals of strenghtening her pelvic floor s/p laprascopic hysterectomy due to cervical cancer stage 1 A. Doris notes prior to the surgery she didn't really have any urinary symptoms, after the surgery she had double voiding x 1 month, every once in a while she still feels like that happens, she does feel she has a overacive bladder she wakes up 3 times per night to void. She did stop drinking diet coke as this was a trigger for urgency. 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 Treatment Goals Patient/Caregiver Goals Treatment goals include pelvic floor strenghening to prevent urinary leakage and prolapse and decreasing urgency and nocturia PT-OP-C Subjective Start: 02/24/24 08:58 Freq: Status: Active Protocol: Document 05/17/24 09:02 [facility] (Rec: 05/17/24 09:48 [facility] [id number]) OP-PT Subjective Patient Comments Patient Comments pt notes after her last visit she went for a long 3 mile walk she began feeling her left hip after doing clam shells last visit SHe notes she does feel that is feeling the connection better PT-OP-I Pelvic Floor Start: 02/24/24 08:58 Freq: Status: Active Protocol: Document 02/24/24 09:45 [facility] (Rec: 02/29/24 16:08 [facility] [id number]) Pelvic Floor Assessment Urine Pelvic Floor Surgery Yes: hysterectomy Urinary Symptoms Urge Sensation Other Urinary Symptoms nocturia 3 times per night Voiding Frequency 11-14 times per day Nocturia 3 Pelvic Clock Pelvic Clock 12-3 Atrophy Pelvic Clock 3-6 Atrophy Pelvic Clock 6-9 Atrophy Pelvic Clock 9-12 Atrophy Contraction Ability Voluntary Contraction Weak Voluntary Relaxation Weak Manual Muscle Testing Left 2 Manual Muscle Testing Right 3 Manual Muscle Testing Anterior 2 Manual Muscle Testing Posterior 3 Muscle Endurance (Seconds) 4 Comments Pelvic Floor Comments with the anterior pelvic floor Doris is weaker on the left side as compared to the right side PT-OP-T Assessment and Plan Start: 02/24/24 08:58 Freq: Status: Active Protocol: Document 08/08/24 11:16 [facility] (Rec: 08/08/24 11:18 [facility] [id number]) Physical Therapy Assessment Goals 3 Impairment Decreased endurnace of the pelvic floor Short Term Goal (STG) Doris is able to sustain a pelvic floor contraction in supine x 10 seconds As of 04/27/24 this is improving STG Duration 4 weeks [facility] Goal (LTG) Doris is able to sustain a pelvic floor contraction in standing x 5 seconds LTG Duration 12 weeks 2 Impairment pelvic floor weakness s/p hysterectomy in September 2023 Short Term Goal (STG) doris is educated on a pelvic floor strengthening program to improve bladder support STG Duration 4 weeks Physician Industrial Goal (LTG) Doris is able to improve her strength of the levator ani my one muscle grade or better with MMT for all john of the levator ani. LTG Duration 12 weeks 1 Impairment Doris lacks a home program for pelvic floor and core strengthening s/p hysterectomy Physician Industrial Goal (LTG) Doris is independent with a home program for core and pelvic floor strengthening LTG Duration 12 weeks Assessment Summary Assessment Doris has had to cx her remaining PT visits as she needed to leave town to assist her brother who is undergoing cancer treatments. She is outside of her plan of care at this time so I will need to DC her chart. I would be happy to continue PT at any time in the future for Doris should she feel she needs further care. Physical Therapy Plan Discharge Physical Therapy Discharge Reasons No Longer Attending PT Discharge Comments pt needed to discontinue PT to take care of her brother undergoing chemotherapy
== END 2024-08-09 14:37 | disposition home or self-care (01) ==
LOC: PHYS 09:00
PROVIDERS: Family Provider Internal Medicine Geriatric Medicine; PCP Internal Medicine Geriatric Medicine; Referring Provider Physician Assistant Medical; Visit Provider Physician Assistant Medical
DX: Z98.890 Other specified postprocedural states (principal); C53.9 Malignant neoplasm of cervix uteri, unspecified; N81.84 Pelvic muscle wasting; R35.1 Nocturia; R39.15 Urgency of urination
CPT/HCPCS: 97110; 97112; 97161; 97535